=== PATIENT | female | born 1970 | race American Indian/Alaskan Native ===

== ENCOUNTER 2021-06-05 17:05 | Emergency (ER) | payer BC ==
--- NOTE | 2021-06-05 17:47 | Emergency Department Report ---
ED Chest Pain HPI - General Chief Complaint: Chest Pain Stated Complaint: CHEST PAIN Time Seen by Provider: 06/05/21 17:21 Source: patient Mode of arrival: Ambulatory Limitations: No Limitations - History of Present Illness Initial Comments: Chief complaint: Chest pain shortness of breath abdominal bloating HPI: This a 51-year-old female with history of hypertension, asthma, anxiety and depression who presents with sudden onset of chest pain shortness of breath while working 1 hour prior to arrival at 4 PM. 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 She noticed chest tightness heaviness. She has sensation of pressure someone pushing on her chest. It feels hard to breathe. For the past several days she has had abdominal distention with constipation. Laxatives enema did not provide any relief. Over the last several weeks has had paresthesias. She has [id number] sensation throughout her body. She also has lingering rash from bed bug infestation which occurred several months ago. Family history negative for cardiac disease or VTE, grandmother of throat cancer. There is a history of hypertension diabetes mellitus in the family. Patient's former PCP Dr. Marshall Helm. She stopped taking antihypertensive medication several months ago. She was previously prescribed amlodipine hydrochlorothiazide. She does not smoke cigarettes. She drinks 3 times per week. She drinks 2 glasses of wine during social outings. Additional symptoms: Chills, cough, transient blurry vision Complaint: chest pain -: Gradual, This afternoon Onset: during rest Pain Location: substernal Severity: moderate Severity scale (0 -10): 5 Quality: pressure Consistency: constant Improves With: nothing Worsens With: nothing re: dyspnea Other Symptoms: cough, other (Momentary transient blurry vision) - Related Data Previous Rx's Medication Instructions Recorded Last Taken Type chlordiazePOXIDE [Librium] 25 mg PO Q6H 4 Days #24 capsule 02/02/20 Unknown Rx Allergies Allergy/AdvReac Type Severity Reaction Status Date / Time ibuprofen Allergy Unknown Verified 02/02/20 20:31 milk Allergy Unknown Verified 02/02/20 20:31 shellfish derived Allergy Unknown Verified 02/02/20 20:31 soy Allergy Unknown Verified 02/02/20 20:31 tree nut Allergy Unknown Verified 02/02/20 20:31 Heart Score - HEART Score History: Slightly suspicious EKG: Normal Age: 45-65 Risk factors: 1-2 risk factors Troponin: < normal limit HEART Score: 2 - EKG Read Time Time EKG Completed: 17:17 EKG Read Time: 17:20 - Critical Actions Critical Actions: 0-3 pts:0.9-1.7%risk of adverse cardiac event.Candidate for discharge ED Review of Systems ROS: Stated complaint: CHEST PAIN Other details as noted in HPI Comment: All other systems reviewed and negative Constitutional: denies: chills, fever, malaise ENT: other (Vision changes) Respiratory: cough, shortness of breath Cardiovascular: chest pain Gastrointestinal: constipation, other (Abdominal bloating) Neurological: paresthesias ED Past Medical Hx - Past Medical History Previous Medical History?: Yes Hx Hypertension: Yes Hx Psychiatric Treatment: Yes (Anxiety and depression) Hx Asthma: Yes - Surgical History Past Surgical History?: Yes Additional Surgical History: right thumb. x2 - Social History Smoking Status: Never Smoker Substance Use Type: Alcohol - Medications Home Medications: Home Medications Medication Instructions Recorded Confirmed Last Taken Type chlordiazePOXIDE [Librium] 25 mg PO Q6H 4 Days #24 capsule 02/02/20 Unknown Rx ED Physical Exam - General Limitations: No Limitations General appearance: alert, in no apparent distress - Head Head exam: Present: atraumatic, normocephalic - Eye Eye exam: Present: normal appearance - ENT ENT exam: Present: mucous membranes moist - Neck Neck exam: Present: normal inspection, full ROM - Respiratory Respiratory exam: Present: normal lung sounds bilaterally. Absent: respiratory distress, wheezes, rales, rhonchi - Cardiovascular Cardiovascular Exam: Present: normal rhythm, tachycardia, normal heart sounds. Absent: systolic murmur, diastolic murmur, rubs, gallop - GI/Abdominal GI/Abdominal exam: Present: soft, distended, normal bowel sounds. Absent: tenderness, guarding, rebound - Extremities Exam Extremities exam: Present: normal inspection - Neurological Exam Neurological exam: Present: alert, oriented X3 - Psychiatric Psychiatric exam: Present: normal affect, normal mood - Skin Skin exam: Present: warm, dry, intact, other (Faint papular rash chest upper extremities). Absent: rash ED Course Vital Signs 06/05/21 17:14 Temperature 99.1 F Pulse Rate 126 H Respiratory 20 Rate Blood Pressure 152/93 [Right] O2 Sat by Pulse 97 Oximetry ED Medical Decision Making - Lab Data Result diagrams: 06/05/21 17:44 06/05/21 17:44 - EKG Data -: EKG Interpreted by Me EKG shows normal: sinus rhythm, axis, intervals, QRS complexes, ST-T waves Rate: tachycardia - EKG Data Interpretation: normal EKG 06/05/21 17:47 EKG obtained 1717 EKG interpreted by me Sinus tachycardia rate 120 bpm normal axis normal intervals no ST-T sign ischemia no ST elevation normal EKG with exception of tachycardia - Radiology Data Radiology results: report reviewed Patient Name: KARO FRANCISCO Gender: Female Date of : 1970 Referring Provider: WADE WALTERS Organization: [facility] Accession Number: [id number] Requested Date: June 05, 2021 20:40 Report Status: Final Requested Procedure: 1 Procedure Description: CT abdomen pelvis w con Modality: CT Findings Reporting MD: Faheem Hogue Dictation Time: June 05, 2021 20:06 Typist: Not available Investment Broker Date: CTA CHEST WITH IV CONTRAST INDICATION: Pt states abdominal distention with severe constipation, chest pain, tachycardia, dyspnea CONTRAST: 100 cc Omnipaque 350 IV COMPARISON: None available. Three-plane MIP reconstructions were produced. All CT scans at this location are performed using CT dose reduction for ALARA by means of automated exposure control. NOTE: Resolution is decreased and artifact is introduced by the patient's size. FINDINGS: No significant chest wall abnormalities are seen. No mediastinal or hilar masses are noted. No pleural effusions are seen. No pneumothorax or pneumomediastinum are noted. No obvious endobronchial lesions are seen. Mild left basilar scarring versus atelectasis is noted. No obvious pneumonic infiltrates are seen. No pulmonary nodules or masses are noted. Aorta shows no evidence of dissection. The ascending aorta is ectatic with a diameter of 3.8 cm with other portions of normal caliber. Only borderline opacification of the pulmonary arterial system was achieved. In combination with the patient's size this makes evaluation of the pulmonary arteries difficult. No large central PTE is obvious. CT ABDOMEN AND PELVIS WITH CONTRAST INDICATION: Pt states abdominal distention with severe constipation CONTRAST: 100 cc Omnipaque 350 IV COMPARISON: None available. All CT scans at this location are performed using CT dose reduction for ALARA by means of automated exposure control. NOTE: Resolution is decreased and artifact is introduced by the patient's size. FINDINGS: No pneumoperitoneum is seen. Small fatty umbilical and paraumbilical hernias are noted without acute change seen. Small bilateral inguinal fatty hernias are noted. Small hiatal hernia is seen. Liver is prominently enlarged and shows prominent fatty infiltration. Hepatic length measures 24.1 cm in hepatic volume is significantly increased. No obvious focal masses are seen. Spleen is not enlarged. I see no abnormalities of the pancreas, gallbladder, bile ducts, adrenals, or kidneys. No urinary obstructive changes are seen. No evidence of bowel obstruction is noted. No inflammatory changes are seen. Appendix appears within normal limits. No lymphadenopathy is seen. No free fluid is noted. [facility] [address] [place] [address] P [phone] F [phone] [facility] [facility] - Report exported on Sun, Jun 05, 2021 21:04:52 -0500 - Page 2 of 2 A large left adnexal mass appearing to be solid and mildly heterogenous measures 9.5 cm. This is most likely arising from the lateral aspect of the uterus and I believe represents a large leiomyoma. I have not clearly this area from the left ovary however. Right ovary shows no abnormalities. IMPRESSION: 1. Limited evaluation for PTE but no large central embolus is detected 2. No acute pulmonary abnormalities of significance are seen 3. Ectasia of the ascending aorta 4. Prominent fatty infiltration of the liver with prominent hepatomegaly 5. Left adnexal solid mass which I believe is very likely arising from the uterus though separation from the left ovary is not definite. Follow-up in a nonurgent setting with ultrasound may be useful for better anatomical differentiation. 6. No acute abnormalities are seen in the abdomen or pelvis - Medical Decision Making 1. Atypical chest pain: Troponin x2 -, EKG normal. Heart score 2. Referred to rn acute dialysis for outpatient stress testing. CT angio negative for Vte 2. Fatty liver: Abnormal liver enzymes AST elevated remarkably patient admits to drinking 3 times a week. Recommended alcohol cessation for further evaluation. 3. Uterine fibroid refer to metal roofing mechanic Critical care attestation.: If time is entered above; I have spent that time in minutes in the direct care of this critically ill patient, excluding procedure time. ED Disposition Clinical Impression: Chest pain, Fatty liver, Uterine fibroid Disposition: HOME / SELF CARE / HOMELESS Is pt being admited?: No Does the pt Need Aspirin: No Condition: Stable Instructions: Nonspecific Chest Pain, Adult Referrals: ARNOL ABURTO MD [Staff Physician] - 3-5 Days AMAYA CLEMENTS MD [Staff Physician] - 3-5 Days SHANAE NAVARRO MD [Staff Physician] - 3-5 Days
[2021-06-05 18:47] LABS: Hematocrit 24.4 % (30.3-42.9); Hemoglobin 7.5 gm/dl (10.1-14.3); Mean Corpuscular HGB Conc 31 % (30-34); Mean Corpuscular Volume 72 fl (79-97); Platelet Count 464 K/mm3 (140-440)
[2021-06-05 18:49] LABS: Alanine Aminotransferase 16 units/L (7-56); Albumin 3.3 g/dL (3.9-5); Blood Urea Nitrogen 5 mg/dL (7-17); Hemolysis Index 6
[2021-06-05 18:53] LABS: BUN/Creatinine Ratio 13
[2021-06-05 18:57] LABS: Red Cell Distribution Width 23.6 % (13.2-15.2)
[2021-06-05 21:00] LABS: Total Cells Counted 100
[2021-06-05 21:01] LABS: Hypochromasia 1+; Platelet Estimate Consistent w Auto; Target Cells 1+
--- NOTE | 2021-06-05 21:10 | Cat Scan Report ---
CTA CHEST WITH IV CONTRAST INDICATION: Pt states abdominal distention with severe constipation, chest pain, tachycardia, dyspnea CONTRAST: 100 cc Omnipaque 350 IV COMPARISON: None available. Three-plane MIP reconstructions were produced. All CT scans at this location are performed using CT d ose reduction for ALARA by means of automated exposure control. NOTE: Resolution is decreased and artifact is introduced by the patient's size. FINDINGS: No significant chest wall abnormalities are seen. No mediastinal or hilar masses are noted. No pleural effusions are seen. No pneumothorax or pneumomediastinum are noted. No obvious endobronch ial lesions are seen. Mild left basilar scarring versus atelectasis is noted. No obvious pneumonic in filtrates are seen. No pulmonary nodules or masses are noted. Aorta shows no evidence of dissection. The ascending aorta is ectatic with a diameter of 3.8 cm with other portions of normal caliber. Only borderline opacification of the pulmonary arterial system was achieved. In combination with the patient's size this makes evaluation of the pulmonary arteries difficult. No large central PTE is obv ious. CT ABDOMEN AND PELVIS WITH CONTRAST INDICATION: Pt states abdominal distention with severe constipation CONTRAST: 100 cc Omnipaque 350 IV COMPARISON: None available. All CT scans at this location are performed using CT dose reduction for ALARA by means of automated e xposure control. NOTE: Resolution is decreased and artifact is introduced by the patient's size. FINDINGS: No pneumoperitoneum is seen. Small fatty umbilical and paraumbilical hernias are noted with out acute change seen. Small bilateral inguinal fatty hernias are noted. Small hiatal hernia is seen. Liver is prominently enlarged and shows prominent fatty infiltration. Hepatic length measures 24.1 cm in hepatic volume is significantly increased. No obvious focal masses are seen. Spleen is not enlarg ed. I see no abnormalities of the pancreas, gallbladder, bile ducts, adrenals, or kidneys. No urinary obstructive changes are seen. No evidence of bowel obstruction is noted. No inflammatory changes are seen. Appendix appears within normal limits. No lymphadenopathy is seen. No free fluid is noted. A large left adnexal mass appearing to be solid and mildly heterogenous measures 9.5 cm. This is most likely arising from the lateral aspect of the uterus and I believe represents a large leiomyoma. I h ave not clearly this area from the left ovary however. Right ovary shows no abnormalities. IMPRESSION: 1. Limited evaluation for PTE but no large central embolus is detected 2. No acute pulmonary abnormalities of significance are seen 3. Ectasia of the ascending aorta 4. Prominent fatty infiltration of the liver with prominent hepatomegaly 5. Left adnexal solid mass which I believe is very likely arising from the uterus though separation f rom the left ovary is not definite. Follow-up in a nonurgent setting with ultrasound may be useful fo r better anatomical differentiation. 6. No acute abnormalities are seen in the abdomen or pelvis Signer Name: Faheme Hogue MD Signed: 06/05/2021 9:06 PM Workstation Name: [id number]
[2021-06-05 23:11] VITALS: BP 148/77
--- NOTE | 2021-06-06 09:47 | Electrocardiograph Report ---
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
== END 2021-06-05 23:06 | disposition home or self-care (01) ==
LOC: ED 17:05
DX: D25.9 Leiomyoma of uterus, unspecified (principal); R07.89 Other chest pain; K76.0 Fatty (change of) liver, not elsewhere classified; I10 Essential (primary) hypertension; J45.909 Unspecified asthma, uncomplicated; F32.9 Major depressive disorder, single episode, unspecified; F41.9 Anxiety disorder, unspecified; Z72.89 Other problems related to lifestyle; Z88.6 Allergy status to analgesic agent; Z91.011 Allergy to milk products; Z91.013 Allergy to seafood; Z91.010 Allergy to peanuts; Z79.899 Other long term (current) drug therapy; Z91.018 Allergy to other foods
CPT/HCPCS: 36415; 71275; 74177; 80053; 83690; 83880; 84484; 85007; 85025; 93005; 99284; Q9967

== ENCOUNTER 2021-07-26 15:36 | Emergency (ER) | payer BC ==
[2021-07-26] MEDS ORDERED: hydrOXYzine PAMOATE 25 MG CAP PO ONE ×2 (16:27→17:57)
[2021-07-26] MEDS ORDERED: ALUM-MAG HYDROXIDE-SIMETHICONE 200-200-20MG/5ML ORAL LIQD 30 ML PO ONE (16:27)
[2021-07-26] MEDS ORDERED: predniSONE 20 MG TAB PO ONE (16:27)
--- NOTE | 2021-07-26 16:43 | Emergency Department Report ---
ED General Adult HPI - General Chief complaint: Chest Pain Stated complaint: CHEST PAIN Time Seen by Provider: 07/26/21 16:17 Source: patient Mode of arrival: Ambulatory Limitations: No Limitations - History of Present Illness Initial comments: CC: trouble breathing, chest spasms HPI: THis is a 51 yo female with hx of fatty liver, alcohol dependence, asthma, anxiety, depression who presents with trouble breathing, throat/chest spasms and neuropathic pain. She has intermittent chest spasms with difficulty breathing. Has occurred intermittently for several days. She feels as if her throat is closing up. Admitted to [facility] one motnh ago. She received blood transfusion and several bags of fluid. She was diagnossed at that time with fatty liver and alcohol dependence. She continues to drink alcohol daily. She is having trouble sleeping. She was given antidepressant which helped. She was also given multivitamin. She has run out of medications. She has not established care with a new primary care physician because she is busy with work. I evaluated patient on 06/05 for chest pain shortness of breath rash and constipation. She had extensive evaluation including CT angiogram chest and CT Abdomen/Pelvis. Work-up revealed, AST elevation indicative of alcoholic transaminitis, mild anemia hemoglobin seven as well as pelvic mass and fatty liver -: Gradual, days(s) (Several days) Location: chest (Chest spasm shortness of breath sensation of throat closing) Severity scale (0 -10): 5 Quality: other (Spasm) Consistency: intermittent Improves with: none Worsens with: none Associated Symptoms: other (Pain in extremities) - Related Data Previous Rx's Medication Instructions Recorded Last Taken Type chlordiazePOXIDE [Librium] 25 mg PO Q6H 4 Days #24 capsule 02/02/20 Unknown Rx hydrOXYzine PAMOATE [Vistaril] 25 mg PO Q6HR PRN #20 capsule 07/26/21 Unknown Rx Allergies Allergy/AdvReac Type Severity Reaction Status Date / Time milk Allergy Unknown Verified 07/26/21 15:48 shellfish derived Allergy Unknown Verified 07/26/21 15:48 soy Allergy Unknown Verified 07/26/21 15:48 tree nut Allergy Unknown Verified 07/26/21 15:48 egg AdvReac Vomiting Verified 07/26/21 15:48 ED Review of Systems ROS: Stated complaint: CHEST PAIN Other details as noted in HPI Comment: All other systems reviewed and negative Constitutional: denies: chills, fever, malaise Respiratory: shortness of breath. denies: cough Cardiovascular: chest pain Gastrointestinal: denies: abdominal pain, nausea, vomiting Skin: denies: rash, lesions Psychiatric: anxiety, depression ED Past Medical Hx - Past Medical History Hx Hypertension: Yes Hx Psychiatric Treatment: Yes (Anxiety and depression) Hx Asthma: Yes - Surgical History Additional Surgical History: right thumb. x2 - Social History Smoking Status: Never Smoker Substance Use Type: Alcohol - Medications Home Medications: Home Medications Medication Instructions Recorded Confirmed Last Taken Type chlordiazePOXIDE [Librium] 25 mg PO Q6H 4 Days #24 capsule 02/02/20 Unknown Rx hydrOXYzine PAMOATE [Vistaril] 25 mg PO Q6HR PRN #20 capsule 07/26/21 Unknown Rx ED Physical Exam - General Limitations: No Limitations General appearance: alert, in no apparent distress, anxious - Head Head exam: Present: atraumatic, normocephalic - Eye Eye exam: Present: normal appearance - ENT ENT exam: Present: mucous membranes moist - Neck Neck exam: Present: normal inspection, full ROM - Respiratory Respiratory exam: Present: normal lung sounds bilaterally. Absent: respiratory distress, wheezes, rales, rhonchi - Cardiovascular Cardiovascular Exam: Present: regular rate, normal rhythm, normal heart sounds. Absent: systolic murmur, diastolic murmur, rubs, gallop - GI/Abdominal GI/Abdominal exam: Present: soft, normal bowel sounds. Absent: distended, tenderness, guarding, rebound - Extremities Exam Extremities exam: Present: normal inspection - Back Exam Back exam: Present: normal inspection - Neurological Exam Neurological exam: Present: alert, oriented X3 - Psychiatric Psychiatric exam: Present: normal affect, normal mood - Skin Skin exam: Present: warm, dry, intact, normal color. Absent: rash ED Medical Decision Making - Lab Data Result diagrams: 07/26/21 16:33 07/26/21 16:33 - EKG Data -: EKG Interpreted by Me EKG shows normal: sinus rhythm, axis, intervals, QRS complexes, ST-T waves Rate: tachycardia - EKG Data Interpretation: normal EKG (With exception of tachycardia) 07/26/21 16:38 EKG obtained 1542 EKG interpreted by me Sinus tachycardia rate 110 bpm normal axis prolonged QTC no ST sign ischemia - Medical Decision Making 1. Anxiety reaction: During conversation with patient, she suddenly made stridorous noises in the liver fashion. The episode lasted 2 to 3 seconds. She then resumed normal conversation. No indication of bronchospasm or angioedema. Patient received Vistaril prednisone Maalox for treatment. I have prescribed Vistaril. I do not suspect acute coronary syndrome. CT angio of the chest ruled out pulmonary embolism on June 05, 2021. 2. Pelvic mass: Referred to tile installer 3. Alcohol dependence exacerbating anxiety with likely mild withdrawal symptoms and neuropathy. Recommended outpatient rehabilitation services. Patient works at [employer]. Recommended alcoholics anonymous. 4. 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 Critical care attestation.: If time is entered above; I have spent that time in minutes in the direct care of this critically ill patient, excluding procedure time. ED Disposition Clinical Impression: Anxiety reaction, Pelvic mass Disposition: HOME / SELF CARE / HOMELESS Is pt being admited?: No Does the pt Need Aspirin: No Condition: Stable Instructions: Pelvic Mass, Female Prescriptions: hydrOXYzine PAMOATE [Vistaril] 25 mg PO Q6HR PRN #20 capsule PRN Reason: Anxiety or dyspnea Referrals: AMAYA CLEMENTS MD [Staff Physician] - 3-5 Days LISA MENDOZA MD [Staff Physician] - 3-5 Days
[2021-07-26 16:48] LABS: Basophils # (Auto) 0.1 K/mm3 (0.0-0.1); Basophils % (Auto) 0.9 % (0.0-1.8); Eosinophils # (Auto) 0.4 K/mm3 (0.0-0.4); Eosinophils % (Auto) 3.6 % (0.0-4.3); Hematocrit 32.7 % (30.3-42.9); Lymphocytes % (Auto) 20.3 % (13.4-35.0); Mean Corpuscular HGB Conc 31 % (30-34); Mean Corpuscular Volume 76 fl (79-97); Monocytes # (Auto) 0.8 K/mm3 (0.0-0.8); Monocytes % (Auto) 8.1 % (0.0-7.3); Platelet Count 243 K/mm3 (140-440); Red Blood Count 4.32 M/mm3 (3.65-5.03)
[2021-07-26 16:49] LABS: Red Cell Distribution Width 20.3 % (13.2-15.2)
[2021-07-26 18:23] LABS: BUN/Creatinine Ratio 10; Blood Urea Nitrogen 8 mg/dL (7-17); Calcium 6.4 mg/dL (8.4-10.2); Hemolysis Index 3
[2021-07-26 18:58] VITALS: BP 157/68
--- NOTE | 2021-07-27 12:23 | Electrocardiograph Report ---
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
== END 2021-07-26 18:58 | disposition home or self-care (01) ==
LOC: ED 15:36
DX: F41.1 Generalized anxiety disorder (principal); R19.09 Other intra-abdominal and pelvic swelling, mass and lump; I10 Essential (primary) hypertension; J45.909 Unspecified asthma, uncomplicated; F10.20 Alcohol dependence, uncomplicated
CPT/HCPCS: 36415; 80048; 85025; 93005; 99283; J7512; Q0177; J3490